=== PATIENT | male | born 1995 | race Caucasian/White ===

== ENCOUNTER 2016-10-15 21:58 | Emergency (ER) | payer OTHER ==
[~2016-10-15] VITALS: Ht 175.3 cm; Wt 52.2 kg
[2016-10-15 22:01] VITALS: TEMP 36.7; Ht 175.3 cm; Wt 52.2 kg
[2016-10-15 22:21] VITALS: O2SAT 99
[2016-10-15 22:31] LABS: BASO % 0.3 %; BASO ABS # 0.03 K/uL (0-0.2); COMPLETE YES; EOS % 0.4 %; HEMATOCRIT 49.1 % (42-52); IG% 0.3 %; LYMPH % 25.8 %; LYMPH ABS # 3.01 K/uL (1.2-3.4); MEAN CELL VOLUME 84.5 fL (80-100); MEAN CORPUSCULAR HEMOGLOBIN 31.7 pg (25-34); MEAN CORPUSCULAR HGB CONC 37.5 g/dl (32-36); MEAN PLATELET VOLUME 9.2 fL (7.4-10.4); MONO % 5.1 %; NEUT % 68.1 %; PLATELET COUNT 298 K/uL (130-400); RED BLOOD COUNT 5.81 M/uL (4.7-6.1); WHITE BLOOD COUNT 11.67 K/uL (4.8-10.8)
--- NOTE | 2016-10-15 22:41 | DIAGNOSTIC IMAGING REPORT ---
CHEST 2 VIEWS ROUTINE CLINICAL HISTORY: 21 years-old Male presenting with left CP eval for ptx. TECHNIQUE: PA and lateral views of the chest were obtained. COMPARISON: None. FINDINGS: Cardiomediastinal silhouette normal. Lungs and pleural spaces clear. Osseous structures normal. Upper abdomen normal. IMPRESSION: 1. No acute cardiopulmonary disease. Electronically signed by: Fermin Jhonson M.D. 10/15/2016 10:40 PM Dictated Date/Time: 10/15/2016 10:39 PM
[2016-10-15 22:42] LABS: POINT OF CARE TROPONIN I < 0.030 ng/ml (0-0.045)
[2016-10-15 22:45] LABS: BUN/CREATININE RATIO 10.9 (10-20); CALCIUM 9.7 mg/dl (8.5-10.1); CREATININE 1.2 mg/dl (0.60-1.40); POTASSIUM 3.8 mmol/L (3.5-5.1)
[2016-10-15 23:10] VITALS: BP 127/75; PULSE 78; O2SAT 95
--- NOTE | 2016-10-15 23:33 | EMERGENCY ROOM VISIT NOTE ---
History Report prepared by Venkat: Cecilia Vázquez Under the Supervision of: Dr. Lam Palacios M.D. First contact with patient: 22:06 Chief Complaint: SHORTNESS OF BREATH Stated Complaint: SOB, DIZZINESS History of Present Illness The patient is a 21 year old male who presents to the Emergency Room with complaints of constant shortness of breath starting a day ago. The patient states when he takes a deep breath he has left sided chest pain that he describes as a pinching. He reports that he has had a pinching in the past but never with shortness of breath. He notes that when he stands up he becomes lightheaded. The patient denies a fever, cough, leg swelling, leg pain, recent surgery, and a family history of blood clots. The patient notes he does smoke 10 cigarettes a day. He denies the use of cocaine. He denies coughing anything up. Source of History: patient Onset: a day ago Position: other Quality: other (global) Timing: constant Modifying Factors (Worsening): other (standing ) Associated Symptoms: + chest pain, No fevers, No cough Note: The patient complains of lightheadedness. The patient denies leg swelling, leg pain, recent surgery, a family history of blood clots, the use of cocaine, and coughing anything up. Review of Systems See HPI for pertinent positives & negatives. A total of 10 systems reviewed and were otherwise negative. Past Medical & Surgical Medical Problems: (1) No significant past medical history Surgical Problems: (1) No history of previous surgery Family History FH: cancer FH: diabetes mellitus Social History Smoking Status: Current Every Day Smoker Alcohol Use: none Drug Use: none Marital Status: single Housing Status: lives alone Occupation Status: [employer] student Current/Historical Medications No Active Prescriptions or Reported Meds Allergies Coded Allergies: No Known Allergies (Unverified , 12/27/15) Physical Exam Vital Signs Date Time Temp Pulse Resp B/P (MAP) Pulse Ox O2 Delivery O2 Flow Rate FiO2 10/15/16 23:10 78 18 127/75 95 10/15/16 23:01 88 10/15/16 22:21 99 Room Air 10/15/16 22:01 36.7 102 16 138/77 99 Room Air Physical Exam Constitutional: Vital signs reviewed. Eyes: Pupils are equal round reactive to light. Conjunctiva are noninjected. ENT: Pharynx is clear without erythema or exudate. Mucous membranes are moist. Neck supple without meningeal signs. Respiratory: Clear to auscultation bilaterally. Breath sounds are equal bilaterally. Cardiovascular: Regular rate and rhythm. No rubs or gallops. GI: Soft, nondistended and nontender. Bowel sounds are present. Musculoskeletal: No peripheral edema. No lower extremity tenderness. Integumentary: No cyanosis. Neurological: The patient is awake and alert. No focal deficits. Psychiatric: Normal affect. Medical Decision & Procedures ER Provider Diagnostic Interpretation: Radiology results as stated below per my review and the radiologist's interpretation: CHEST 2 VIEWS ROUTINE CLINICAL HISTORY: 21 years-old Male presenting with left CP eval for ptx. TECHNIQUE: PA and lateral views of the chest were obtained. COMPARISON: None. FINDINGS: Cardiomediastinal silhouette normal. Lungs and pleural spaces clear. Osseous structures normal. Upper abdomen normal. IMPRESSION: 1. No acute cardiopulmonary disease. Electronically signed by: Fermin Johnson M.D. 10/15/2016 10:40 PM Dictated Date/Time: 10/15/2016 10:39 PM Laboratory Results 10/15/16 22:15 Red Blood Count 5.81, Mean Corpuscular Volume 84.5, Mean Corpuscular Hemoglobin 31.7, Mean Corpuscular Hemoglobin Concent 37.5, Mean Platelet Volume 9.2, Neutrophils (%) (Auto) 68.1, Lymphocytes (%) (Auto) 25.8, Monocytes (%) (Auto) 5.1, Eosinophils (%) (Auto) 0.4, Basophils (%) (Auto) 0.3, Neutrophils # (Auto) 7.96, Lymphocytes # (Auto) 3.01, Monocytes # (Auto) 0.59, Eosinophils # (Auto) 0.05, Basophils # (Auto) 0.03 10/15/16 22:15 Test 10/15/16 22:15 10/15/16 22:22 White Blood Count 11.67 K/uL (4.8-10.8) Red Blood Count 5.81 M/uL (4.7-6.1) Hemoglobin 18.4 g/dL (14.0-18.0) Hematocrit 49.1 % (42-52) Mean Corpuscular Volume 84.5 fL (80-100) Mean Corpuscular Hemoglobin 31.7 pg (25-34) Mean Corpuscular Hemoglobin Concent 37.5 g/dl (32-36) Platelet Count 298 K/uL (130-400) Mean Platelet Volume 9.2 fL (7.4-10.4) Neutrophils (%) (Auto) 68.1 % Lymphocytes (%) (Auto) 25.8 % Monocytes (%) (Auto) 5.1 % Eosinophils (%) (Auto) 0.4 % Basophils (%) (Auto) 0.3 % Neutrophils # (Auto) 7.96 K/uL (1.4-6.5) Lymphocytes # (Auto) 3.01 K/uL (1.2-3.4) Monocytes # (Auto) 0.59 K/uL (0.11-0.59) Eosinophils # (Auto) 0.05 K/uL (0-0.5) Basophils # (Auto) 0.03 K/uL (0-0.2) RDW Standard Deviation 40.4 fL (36.4-46.3) RDW Coefficient of Variation 13.2 % (11.5-14.5) Immature Granulocyte % (Auto) 0.3 % Immature Granulocyte # (Auto) 0.03 K/uL (0.00-0.02) Anion Gap 7.0 mmol/L (3-11) Est Creatinine Clear Calc Drug Dose 71.9 ml/min Estimated GFR () 99.6 Estimated GFR (Non- 85.9 BUN/Creatinine Ratio 10.9 (10-20) Calcium Level 9.7 mg/dl (8.5-10.1) Bedside D-Dimer 42 ng/mlFEU (0-450) Bedside Troponin I < 0.030 ng/ml (0-0.045) Laboratory results as reviewed by me. ECG Indication: SOB/dyspnea Rate (beats per minute): 87 Rhythm: normal sinus Findings: RBBB (incomplete), no acute ischemic change, no ectopy ED Course 2206: The patient was evaluated in room A4. A complete history and physical exam was performed. 2257: Upon reevaluation, the patient appeared to have improvement of his symptoms. I discussed tonight's findings with the patient. He verbalized agreement of the treatment plan and the need for close follow up. The patient was discharged home. Medical Decision This is a 21-year-old male who presents with dyspnea and pleuritic chest pain. Differential diagnosis includes pleurisy, pneumothorax, pneumonia, bronchitis, pulmonary embolism. I did perform a limited focused review of portions of the patient's old chart on the electronic medical record. The patient has had no recent pertinent visits to this hospital. I did evaluate the patient as noted above. The patient is very well-appearing. He presents with dyspnea and some pleuritic chest pain which she describes as a pinching pain.IV access was established. The patient was placed on a continuous youth nutritional monitor. He is not hypoxic. His 12-lead EKG demonstrates an incomplete right bundle branch block. I did order and personally review the patient's 12-lead EKG and chest x-ray as described above.There are no acute ischemic changes. His chest x-ray demonstrates no evidence of pneumonia or pneumothorax. There is no widening of his mediastinum. I did order and review the patient's blood work as noted in the electronic medical record. Troponin and d-dimer are both negative. I did discuss the test results with the patient. At this time the cause of his symptoms is unclear and so I did recommend close follow up with [facility] for further evaluation. The patient was discharged in good condition. He was told to return for any worsening symptoms. Medication Reconcilliation Current Medication List: was personally reviewed by me Blood Pressure Screening Patient's blood pressure: Elevated blood pressure Impression Primary Impression: Acute dyspnea Additional Impression: Acute chest pain Scribe Attestation The scribe's documentation has been prepared under my direct and personally reviewed by me in its entirety. I confirm that the note above accurately reflects all work, treatment, procedures, and medical decision making performed by me. Departure Information Dispostion Home / Self-Care Prescriptions No Active Prescriptions or Reported Meds Referrals No Doctor, Assigned (PCP) Forms HOME CARE DOCUMENTATION FORM, IMPORTANT VISIT INFORMATION Patient Instructions My [facility] Additional Instructions You have been examined and treated today on an emergency basis only. This is not a substitute for, or an effort to provide, complete comprehensive medical care. It is impossible to recognize and treat all injuries or illnesses in a single emergency department visit. It is therefore important that you follow up closely with [facility]. Call as soon as possible for an appointment. Return for worsening symptoms or if you develop fever, vomiting, or any other concerning symptoms. Problem Qualifiers
== END 2016-10-15 23:11 | disposition home or self-care (01) ==
LOC: C.EDB 21:59 → C.EDA 23:11
DX: R06.00 Dyspnea, unspecified (principal); R07.9 Chest pain, unspecified; I45.10 Unspecified right bundle-branch block; F17.200 Nicotine dependence, unspecified, uncomplicated; Z80.9 Family history of malignant neoplasm, unspecified; Z83.3 Family history of diabetes mellitus

== ENCOUNTER 2017-01-01 22:49 | Emergency (ER) | payer OTHER ==
[~2017-01-01] VITALS: Ht 175.3 cm; Wt 50.3 kg
[2017-01-01 22:53] VITALS: TEMP 36.9; Ht 175.3 cm; Wt 50.3 kg
[2017-01-01] MEDS ORDERED: GI COCKTAIL PO STA (23:08)
[2017-01-01] MEDS ORDERED: KETOROLAC TROMETHAMINE 60 MG/2 ML VIAL IM STA (23:08)
[2017-01-01] MEDS ORDERED: ACETAMINOPHEN 500 MG TAB PO STA (23:08)
--- NOTE | 2017-01-01 23:18 | EMERGENCY ROOM VISIT NOTE ---
History Report prepared by Venkat: Jean Levi Under the Supervision of: Dr. Tony Sauceda M.D. First contact with patient: 23:03 Chief Complaint: CARDIAC ASSESSMENT Stated Complaint: CHEST PAIN ( AIR IN CHEST ) History of Present Illness The patient is a 21 year old male who presents to the ED with a cc of waxing and waning chest pain beginning today. Negative for a cough, N/V, and swelling. The patient states that he spent a majority of the day today outside. He notes that since then, he has been feeling a sharp pain that feels like he has "air in his chest." He reports that his pain feels like it moves to the side and comes into his throat. The patient states that his pain worsens when he drinks so he has not been able to drink a lot of fluids today. He notes that he did not fall today when he was outside. He reports that he has no chronic medical problems and did not take any pain medication [employer]. He notes that he smokes cigarettes. Source of History: patient Onset: today Position: chest Quality: sharp Timing: waxes/wanes Modifying Factors (Worsening): drinking Associated Symptoms: No cough, No nausea, No vomiting Note: he denies any swelling Review of Systems See HPI for pertinent positives and negatives. A total of ten systems were reviewed and were otherwise negative. Past Medical & Surgical Medical Problems: (1) No significant past medical history Surgical Problems: (1) No history of previous surgery Family History FH: cancer FH: diabetes mellitus Social History Smoking Status: Current Every Day Smoker Alcohol Use: none Drug Use: none Marital Status: single Housing Status: lives alone Occupation Status: [email or web address] student Current/Historical Medications Scheduled Famotidine (Pepcid), 40 MG PO QD Allergies Coded Allergies: No Known Allergies (Unverified , 01/01/17) Physical Exam Vital Signs Date Time Temp Pulse Resp B/P (MAP) Pulse Ox O2 Delivery O2 Flow Rate FiO2 01/02/17 00:11 67 20 109/57 97 01/01/17 23:27 98 Room Air 01/01/17 22:53 36.9 86 18 121/84 98 Room Air Physical Exam GENERAL: Awake, alert, well-appearing, NAD HENT: Normocephalic, atraumatic. Right posterior oropharynx clear. EYES: Normal conjunctiva. Sclera non-icteric. NECK: Supple. No nuchal rigidity. FROM. RESPIRATORY: CTAB, no rhonchi, wheezing, crackles. No stridor. CARDIAC: RRR, no MRG ABDOMEN: Soft, NTND, BS+ MSK: No chest wall TTP, no LE edema. No crepitus over neck or chest. No LLE swelling, no calf pain. NEURO: GCS 15, CN 2-12 intact, moves all 4s on command SKIN: No rash or jaundice noted. Medical Decision & Procedures ER Provider Diagnostic Interpretation: Radiology results as stated below per my review and radiologist interpretation: CHEST X-RAY: Trachea is midline. Costophrenic angles are well demarcated. Lungs are expanded. No signs of pleural effusion, pneumothorax, or consolidation. No cardiomegaly. Bony elements appear intact. Trace error under diaphragm, likely to be a gastric bubble. Medications Administered Medications (Trade) Dose Ordered Sig/Zoila Route Start Time Stop Time Status Last Admin Dose Admin Acetaminophen (Tylenol Tab) 1,000 mg NOW STAT PO 01/01/17 23:08 01/01/17 23:11 DC 01/01/17 23:24 1,000 MG Al Hydroxide/Mg Hydroxide (Maalox Susp) 30 ml STK-MED ONCE .ROUTE 01/01/17 23:20 01/01/17 23:21 DC 01/01/17 23:24 30 ML Lidocaine HCl (Viscous Lidocaine 2% Soln) 20 ml STK-MED ONCE .ROUTE 01/01/17 23:20 01/01/17 23:21 DC 01/01/17 23:24 20 ML Ibuprofen (Advil Tab) 400 mg NOW STAT PO 01/01/17 23:39 01/01/17 23:40 DC 01/01/17 23:49 400 MG ECG Indication: chest pain Rate (beats per minute): 83 Findings: RBBB (incomplete), no ectopy, other (normal intervals, normal axis, no STS changes or T-Wave inversions) ED Course 2305: The patient was evaluated in room A2. A complete history and physical exam was performed. 2358: I reevaluated and updated the patient. He feels better. 0014: I reevaluated the patient. Discussed results and discharge instructions: He verbalized understanding and agreement. The patient is ready for discharge. Medical Decision The patient is a 21 year old male who presents to the ED with a cc of waxing and waning chest pain beginning today. Negative for a cough, N/V, and swelling. Differential diagnosis: Etiologies such as cardiac ischemia, aortic dissection, pulmonary embolism, pneumonia, pneumothorax, musculoskeletal, infections, pericarditis, myocarditis , esophageal rupture, gastrointestinal, as well as others were entertained. Patient was seen and evaluated the bedside. Patient was complaining of some mild chest pain. Patient states he felt as though he had air stuck in his chest. Patient denies any recent trauma. Patient states he was outside all day. Patient denies any infectious symptoms. Patient denies any recent travel. Patient denies any history of DVT or PE. Patient denies any cough. Patient did have an EKG and a chest x-ray completed. Patient was also given medications for symptomatic treatment. Patient's EKG was nonischemic. Given the patient's history and physical nonischemic EKG without any risk factors with the exception of smoking is less likely to be ACS. Patient's chest x-ray appears clear bilaterally less likely to be infection, pneumothorax, or pleural effusion. Patient is PERC negative thus less likely PE. Patient was feeling improved after symptomatically treatment. Patient states that he felt better after belching. Patient was told that he should try to take smaller meals, avoid things like spicy, citrus, chocolate, or peppermint. Patient was also given a prescription for Pepcid. Patient was able tolerate by mouth without issue. Patient was deemed suitable for outpatient follow-up and treatment. Patient was given strict follow-up, discharge, and return precautions. All questions were answered. Patient was deemed suitable for outpatient follow-up at this time. Patient agreed with the plan of care and was safely discharged home. Medication Reconcilliation Current Medication List: was personally reviewed by me Blood Pressure Screening Patient's blood pressure: Normal blood pressure Blood pressure disposition: Did not require urgent referral Impression Primary Impression: Acute chest pain Additional Impressions: Dyspepsia Encounter for smoking cessation counseling Scribe Attestation The scribe's documentation has been prepared under my direction and personally reviewed by me in its entirety. I confirm that the note above accurately reflects all work, treatment, procedures, and medical decision making performed by me. Departure Information Dispostion Home / Self-Care Prescriptions Famotidine (PEPCID) 40 Mg Tab 40 MG PO QD for 30 Days, #30 TAB Prov: Tony Sauceda M.D. 01/02/17 Referrals [facility] (PCP) Forms IMPORTANT VISIT INFORMATION Patient Instructions Acid Reflux, Meds Acid Reflux, My [facility], Tips Control Acid Reflux Additional Instructions Please return to the emergency department if you have worsening or recurrent symptoms not amenable to at-home treatment. Please call for a follow-up appointment with her primary care physician. Please take your medications as prescribed. If you have other concerns and/or complaints please feel free to also call your primary care physician's office or return the ED for further evaluation, management, and treatment. Consider smaller meals. Avoid laying down soon after eating. You may also consider avoid spicy, citrus, chocolate, and/or peppermint. You may take 600 mg Ibuprofen every 6 hours as needed for pain with food for no more than 2 consecutive days. You may take tylenol 1000 mg every 6 hours as needed for pain. You may take motrin and tylenol separately or at the same time. Take your medications as prescribed. You have been examined and treated today on an emergency basis only. This is not a substitute for, or an effort to provide, complete comprehensive medical care. It is impossible to recognize and treat all injuries or illnesses in a single emergency department visit. It is therefore important that you follow up closely with [facility], your PCP, and/or your specialist(s). Call as soon as possible for an appointment. Thank you for your time and consideration. I look forward to speaking with you again soon. Please don't hesitate to call us if you have any questions. Problem Qualifiers
[2017-01-01] MEDS ORDERED: ALUMINUM/MAGNESIUM SUSP 30 ML UDC ONE (23:20)
[2017-01-01] MEDS ORDERED: LIDOCAINE HCL 2% VISC SOLN 20 ML UDC ONE (23:20)
[2017-01-01] MEDS ORDERED: IBUPROFEN 200 MG TAB PO STA (23:39)
[2017-01-02] MEDS ORDERED: FAMO40TA6 PO
[2017-01-02 00:11] VITALS: BP 109/57; PULSE 67; O2SAT 97
--- NOTE | 2017-01-02 07:17 | DIAGNOSTIC IMAGING REPORT ---
CHEST ONE VIEW PORTABLE CLINICAL HISTORY: Atypical chest pain COMPARISON STUDY: October 15, 2016 FINDINGS: The cardiac and mediastinal contours are normal. There is no evidence of focal pulmonary consolidation. There is no evidence of failure. No pleural effusions are visualized.[ There are stable biapical opacities, likely representing scarring. IMPRESSION: No active disease in the chest. Electronically signed by: Umer Marquez M.D. 01/02/2017 7:15 AM Dictated Date/Time: 01/02/2017 7:15 AM
== END 2017-01-02 00:12 | disposition home or self-care (01) ==
LOC: C.EDB 22:50 → C.EDA 01-02 00:12
DX: R07.9 Chest pain, unspecified (principal); R10.13 Epigastric pain; Z71.6 Tobacco abuse counseling; F17.200 Nicotine dependence, unspecified, uncomplicated; Z83.3 Family history of diabetes mellitus